=== PATIENT | female | born 1945 | race Caucasian/White ===

== ENCOUNTER 2018-09-03 09:32 | Emergency (ER) | payer MEDICARE ==
[~2018-09-03] VITALS: Ht 162.6 cm; Wt 79.4 kg
--- OUTSIDE RECORDS SUMMARY | 2018-09-03 09:35 | XMS REPORT | Clinical Summary ---
Author Author DOMINIC [facility] Address Unknown Phone Unavailable Care Team Providers Care Carton Maker Name Role Phone Artemio Mcclure MD PCP Allergies Comments Active Allergy Reactions Severity Noted Date Amoxicillin-Pot Hives, 02/05/2018 Clavulanate Itching Clindamycin Nausea Only 02/05/2018 Erythromycin Nausea Only 02/05/2018 insomnia Levofloxacin 02/05/2018 Medications End Date Status Medication Sig Dispensed Refills Start Date Active DULoxetine (CYMBALTA) 30 Take 30 mg by 0 MG capsule mouth 2 (two) times daily. Active atorvastatin (LIPITOR) 20 Take 20 mg by 0 MG tablet mouth daily. Active gabapentin (NEURONTIN) Take 100 mg 0 100 MG capsule by mouth 2 (two) times daily. Active ranitidine (ZANTAC) 300 Take 300 mg 0 MG capsule by mouth every evening. Active alendronate (FOSAMAX) 70 Take 70 mg by 0 MG tablet mouth every 7 days Take in the morning with a full glass of water, on an empty stomach, and do not take anything else by mouth or lie down for the next 30 min. . Active pantoprazole (PROTONIX) Take 40 mg by 0 40 MG tablet mouth daily. Active cholecalciferol, vitamin Take 1 tablet 0 D3, (VITAMIN D3 ORAL) by mouth daily. Active Missing or Non-Formulary Inject 1 Dose 0 Medication intravenously every 3 (three) months Retimax? (For Non-Hodgkins Lymphoma) . 02/20/2019 Active amiodarone (PACERONE) 200 Take 1 tablet 60 tablet 0 02/20/201 MG tablet (200 mg 8 total) by mouth 2 (two) times daily. 02/20/2019 Active metoprolol (LOPRESSOR) 25 Take 0.5 30 tablet 0 09/10/201 MG tablet tablets (12.5 8 mg total) by mouth 2 (two) times daily. 02/20/2018 Discontinued amLODIPine (NORVASC) 5 MG Take 5 mg by 0 tablet mouth daily. 02/20/2018 Discontinued amiodarone (PACERONE) 200 Take 1 tablet 60 tablet 0 MG tablet (200 mg 8 total) by mouth 2 (two) times daily. 02/20/2018 Discontinued apixaban (ELIQUIS) 5 mg Take 1 tablet 60 tablet 0 Tab tablet (5 mg total) 8 by mouth 2 (two) times daily for 30 days. 02/20/2018 Discontinued metoprolol (LOPRESSOR) 25 Take 0.5 30 tablet 0 201 MG tablet tablets (12.5 8 mg total) by mouth 2 (two) times daily. 03/22/2018 apixaban (ELIQUIS) 5 mg Take 1 tablet 60 tablet 0 Tab tablet (5 mg total) 8 by mouth 2 (two) times daily for 30 days. Active Problems Problem Noted Date New onset a-fib 02/17/2018 Primary osteoarthritis of left knee 02/16/2018 Status post left knee replacement 02/16/2018 Encounters Care Team Description Date Type Specialty 02/17/2018 Orders Only General Internal Medicine Komal Ybarra MD ARTHROPLASTY,KNEE UNILATERAL 02/16/2018 Surgery Andrea Duque MD 02/16/2018 Anesthesia Event Komal Ybarra MD New onset a-fib (HCC) 02/16/2018 Hospital Cardiology - Encounter 02/20/2018 Resource, [place] Preadmit Phone 02/15/2018 Hospital Pre-Admission Testing Encounter after 09/02/2017 Social History Date Tobacco Use Types Packs/Day Years Used Never Smoker Smokeless Tobacco: Never Used Alcohol Use Drinks/Week oz/Week Comments No Sex Assigned at Date Recorded Not on file Industry Job Start Date Occupation Not on file Not on file Not on file Travel End Travel History Travel Start No recent travel history available. Last Filed Vital Signs Time Taken Vital Sign Reading 02/20/2018 12:53 PM CDT Blood Pressure 123/69 02/20/2018 12:53 PM CDT Pulse 72 02/20/2018 12:53 PM CDT Temperature 36.9 C (98.5 F) 02/20/2018 12:53 PM CDT Respiratory Rate 18 02/20/2018 12:53 PM CDT Oxygen Saturation 95% - Inhaled Oxygen - Concentration 02/19/2018 7:35 AM CDT Weight 84 kg (185 lb 3.2 oz) 02/16/2018 5:49 AM CDT Height 162.6 cm (5' 4.02") 02/19/2018 7:35 AM CDT Body Mass Index 31.77 Plan of Treatment Not on file Implants Device Identifier Shelf Expiration Date Model / Serial / Lot Implanted Type Area Manufactur er 07/13/2020 6191-1-001 / / [id number] Cement Bone Surg Smplx P Full Cement/Mark Left: Knee MARIXA:ST 6191-1-001 - [id number] ler/Adhesi ELAINA Implanted: Qty: 2 on 02/16/2018 by Komal Knott MD 08/19/2022 5551-G-320 / / [id number] Patella Tri Asymmetric [id number] Joints Left: Knee MARIXA:ST 5551-G-320 - [id number] ELAINA Implanted: Qty: 1 on 02/16/2018 by Komal Diggs MD 05/16/2022 5530-G-309 / / [id number] Insrt Tib Tri Crx 9mm 5530-G-309 - Joints Left: Knee MARIXA:ST [id number] ELAINA Implanted: Qty: 1 on 02/16/2018 by Komal Diggs MD 02/24/2022 5510-F-201 / / [id number] Comp Fem Cr Lemuel No.2 L 5510-F-201 - Joints Left: Knee MARIXA:ST [id number] ELAINA Implanted: Qty: 1 on 02/16/2018 by Komal Diggs MD 08/23/2022 5520-B-300 / / [id number] Baseplt Luanne Tib Lemuel No.3 5520-B-300 Joints Left: Knee MARIXA:ST - [id number] ELAINA Implanted: Qty: 1 on 02/16/2018 by Komal Diggs MD CS Procedures Comments Procedure Name Priority Date/Time Associated Diagnosis RHYTHM STRIP - SCAN 02/21/2018 12:[address] CHEST PE TEST DESIGN Routine 02/19/2018 5:45 PM CDT HEMOGLOBIN AND HEMATOCRIT Routine 02/19/2018 3:08 AM CDT BASIC METABOLIC PANEL (7) Routine 02/19/2018 3:08 AM CDT B-TYPE NATRIURETIC FACTOR Routine 02/18/2018 (BNP) 12:59 PM CDT XR CHEST 1 VIEW DOMINGO 02/18/2018 PORTABLE/BEDSIDE 12:05 PM CDT MAGNESIUM Routine 02/18/2018 3:19 AM CDT HEMOGLOBIN AND HEMATOCRIT Routine 02/18/2018 3:19 AM CDT BASIC METABOLIC PANEL (7) Routine 02/18/2018 3:19 AM CDT ECHOCARDIOGRAM REPORT - 02/17/2018 SCAN 6:50 PM CDT TRANSFUSION SERVICE 02/17/2018 REPORT - SCAN 5:51 PM CDT 2D ECHO W/ DOPPLER DOMINGO 02/17/2018 (CW/PW/COLOR) 2:24 PM CDT MAGNESIUM DOMINGO 02/17/2018 8:46 AM CDT TROPONIN I DOMINGO 02/17/2018 8:46 AM CDT CREATINE KINASE (CK), DOMINGO 02/17/2018 TOTAL AND MB 8:46 AM CDT TSH/FREE T4 IF INDICATED Routine 02/17/2018 8:46 AM CDT ECG 12-LEAD Routine 02/17/2018 6:53 AM CDT ECG 12-LEAD Routine 02/17/2018 6:53 AM CDT Procedure Note - Interface, External Ris In - 02/17/2018 7:12 AM CDT Ventricula r Rate 109 BPM Atrial Rate 357 BPM QRS Duration 68 ms Q-T Interval 274 ms QTC Calculatio n(Bazett) 368 ms R [place] 47 degrees T [place] 17 degrees Atrial fibrillati on with rapid ventricula r response Abnormal ECG When compared with ECG of 8 06:44, No significan t change was found ECG 12-LEAD Routine 02/17/2018 6:44 AM CDT Procedure Note - Interface, External Ris In - 02/17/2018 7:12 AM CDT Ventricula r Rate 119 BPM Atrial Rate 258 BPM QRS Duration 76 ms Q-T Interval 338 ms QTC Calculatio n(Bazett) 475 ms R [place] 48 degrees T [place] 225 degrees Atrial fibrillati on with rapid ventricula r response Nonspecifi c T wave abnormalit y , probably digitalis effect Abnormal ECG No previous ECGs available ECG 12-LEAD STAT(After 02/17/2018 Hours 6:44 AM CDT Page Staff) HEMOGLOBIN AND HEMATOCRIT Routine 02/17/2018 5:06 AM CDT BASIC METABOLIC PANEL (7) Routine 02/17/2018 5:06 AM CDT ARTHROPLASTY,KNEE 02/16/2018 Osteoarthritis of left UNILATERAL 6:45 AM CDT knee, unspecified osteoarthritis type Special Needs (SPINAL/EP IDURAL WITH ADDUCTOR CANAL BLOCK, MARIXA TRIATHLON) ANESTHESIA PERIPHERAL Routine 02/16/2018 BLOCK 6:41 AM CDT ANESTHESIA SPINAL BLOCK Routine 02/16/2018 6:40 AM CDT TISSUE EXAM AP Routine 02/16/2018 6:13 AM CDT TYPE AND SCREEN, Routine 02/16/2018 AUTOMATED 5:50 AM CDT after 09/02/2017 Results * RHYTHM STRIP - SCAN (02/21/2018 12:42 PM CDT) Narrative Performed At * CT chest for pulmonary embolus (02/19/2018 5:45 PM CDT) Narrative Performed At FINAL REPORT [facility] CLINICAL HISTORY: Chest pain, hypoxia FINDINGS: Multiple axial images of the chest were performed after the uncomplicated administration of IV contrast, utilizing a pulmonary embolism protocol. Post-processing coronal reformats were created and interpreted. This exam was performed according to our departmental dose-optimization program, which includes automated exposure control, adjustment of the mA and/or kV according to patient size and/or use of the iterative reconstruction technique. Study quality:Adequate. Comparison:None. Pulmonary arteries: No pulmonary embolism. Lung parenchyma: Bilateral dependent atelectasis Pleural effusion: None. Pneumothorax: None. Tracheobronchial tree: No significant findings. Pulmonary vasculature: No significant findings. Cardiac contours and great vessels: Atherosclerotic calcification of the coronary arteries and aorta Mediastinum: Moderate to large hiatal hernia Lymph Nodes: No adenopathy in the mediastinum or lisa. Skeleton: No acute abnormality. Limited images of upper abdomen: No significant findings. IMPRESSION: No pulmonary embolism. Bilateral dependent atelectasis versus pneumonitis. Moderate to large hiatal hernia. Signed: Osiel Odell MD Report Verified Date/Time:02/19/2018 18:37:39 Reading Location: [address] Reading Room Procedure Note Interface, External Ris In - 02/19/2018 6:39 PM CDT FINAL REPORT CLINICAL HISTORY: Chest pain, hypoxia FINDINGS: Multiple axial images of the chest were performed after the uncomplicated administration of IV contrast, utilizing a pulmonary embolism protocol. Post-processing coronal reformats were created and interpreted. This exam was performed according to our departmental dose-optimization program, which includes automated exposure control, adjustment of the mA and/or kV according to patient size and/or use of the iterative reconstruction technique. Study quality:Adequate. Comparison:None. Pulmonary arteries: No pulmonary embolism. Lung parenchyma: Bilateral dependent atelectasis Pleural effusion: None. Pneumothorax: None. Tracheobronchial tree: No significant findings. Pulmonary vasculature: No significant findings. Cardiac contours and great vessels: Atherosclerotic calcification of the coronary arteries and aorta Mediastinum: Moderate to large hiatal hernia Lymph Nodes: No adenopathy in the mediastinum or lisa. Skeleton: No acute abnormality. Limited images of upper abdomen: No significant findings. IMPRESSION: No pulmonary embolism. Bilateral dependent atelectasis versus pneumonitis. Moderate to large hiatal hernia. Signed: Osiel Odell MD Report Verified Date/Time: 02/19/2018 18:37:39 Reading Location: [address] Reading Room Performing Organization Address City/State/[facility] Phone Number GE RIS * Hemoglobin and hematocrit (02/19/2018 3:08 AM CDT) Only the most recent of 3 results within the time period is included. Hemoglobin 9.4 (L) 11.2 - 15.7 GM/DL [facility] Hematocrit 29.8 (L) 34.1 - 44.9 % [facility] Specimen Blood Performing Organization Address [facility] Hospital[facility] Phone Number [facility] [address] [place] [address] [facility] * Basic metabolic panel (02/19/2018 3:08 AM CDT) Only the most recent of 3 results within the time period is included. Sodium 135 (L) 136 - 145 meq/L [facility] Potassium 3.6 3.5 - 5.1 meq/L [facility] Chloride 101 98 - 107 meq/L [facility] CO2 25 22 - 29 meq/L [facility] BUN 6 (L) 7 - 21 mg/dL [facility] Creatinine 0.66 0.57 - 1.25 mg/dL [facility] Glucose 108 (H) 70 - 105 mg/dL [facility] Calcium 9.2 8.4 - 10.2 mg/dL [facility] EGFR 88Comment: ESTIMATED GFR IS mL/min/1.73 sq m [facility] NOT ACCURATE CREATININE [facility] CLEARANCE IN PREDICTING GLOMERULAR FILTRATION RATE. ESTIMATED GFR IS NOT APPLICABLE FOR DIALYSIS PATIENTS. Specimen Blood Performing Organization Address City/[facility]code Phone Number [facility] [address] [place] [address] [facility] * B-type Natriuretic Factor (BNP) (02/18/2018 12:59 PM CDT) BNP 253 (H) 0 - 100 pg/mL [facility] Specimen Blood - Arm, Right Performing Organization Address City/State/Zipcode Phone Number [facility] [address] [place] [address] [facility] * XR chest 1 view portable / bedside (02/18/2018 12:05 PM CDT) Narrative Performed At FINAL REPORT GE [employer] INDICATION: SOB TECHNIQUE: Chest radiograph, single view, portable technique. FINDINGS / IMPRESSION: There is a left retrocardiac opacity which may represent pneumonia, aspiration, atelectasis, or possibly a lung mass. Right lung is clear. No pneumothorax or definite pleural effusion demonstrated. Heart shadow is prominent. Osseous structures unremarkable. Signed: Cedric Daniel MD Report Verified Date/Time:02/18/2018 12:51:04 Reading Location: [address] Ortho Consult Reading Room Procedure Note Interface, External Ris In - 02/18/2018 1:35 PM CDT FINAL REPORT INDICATION: SOB TECHNIQUE: Chest radiograph, single view, portable technique. FINDINGS / IMPRESSION: There is a left retrocardiac opacity which may represent pneumonia, aspiration, atelectasis, or possibly a lung mass. Right lung is clear. No pneumothorax or definite pleural effusion demonstrated. Heart shadow is prominent. Osseous structures unremarkable. Signed: Cedric Daniel MD Report Verified Date/Time: 02/18/2018 12:51:04 Reading Location: [facility] B1 [id number] Ortho Consult Reading Room Performing Organization Address City/State/Zipcode Phone Number [employer] * Magnesium (02/18/2018 3:19 AM CDT) Only the most recent of 2 results within the time period is included. Magnesium 1.8 1.6 - 2.6 mg/dL [facility] Specimen Blood - Arm, Right Performing Organization Address City/State/Zipcode Phone Number DOMINIC [facility] [address] [place] [address] [facility] * ECHOCARDIOGRAM REPORT - SCAN (02/17/2018 6:50 PM CDT) Narrative Performed At * TRANSFUSION SERVICE REPORT - SCAN (02/17/2018 5:51 PM CDT) Narrative Performed At * 2D Echo W/Doppler(CW/PW/Color) (02/17/2018 2:24 PM CDT) Ejection Fraction [facility] ECHO [facility]ART[facility] [employer] [facility] Narrative Performed At Transthoracic Echocardiography Report (TTE) [facility] ECHO [facility]ART[facility] Demographics [place] [facility] Patient NameJIMMY ROWLEY Date of Study02/17/2018 MARI Gender Female Visit [id number] Race [id number] Number Date of 1945 ReferringCatmonroe Ybarra Physicia n Age 72 year(s) SonographMirtha Leon CS Extraction Supervisor Fletcher Askewting Ruy Renteria Physicia nMD Procedure Type of Study TTE procedure:2DECHO W DOPPLER(CW/PW/COLOR) (DOMINGO) Indications:Sustained or non sustained Afib, SVT or VT. Clinical History NO LABS AVAILABLE NON HODGKINS LYMPHOMA, HLD, HTN, MATEO, PONV Height: 64 inches Weight: 83.01 kg (183 lbs) BSA: 1.88 m^2 BMI: 31.41 kg/m^2 HR: 109 bpm BP: 167/59 mmHg Signature Findings Left Ventricle The left ventricle is chamber size (by PSLAX dimension) is normal (female - LVIDd 3.8-5.2cm) . Normal LV wall thickness. All of the LV segments contract normally . Estimated LVEF by qualitative assessment is normal (>60%) . Left AtriumLA size is normal . Right VentricleNormal right ventricle structure and function. Right Atrium Normal right atrium. Aortic Valve Mild AoV cusp thickening. Mitral Valve Mild MV leaflet thickening. Tricuspid ValveEstimated peak systolic PA pressure is 25-30 mmHg . A trace of tricuspid regurgitation. Pulmonic Valve Normal PV structure and function by limited views and Doppler. AortaAortic root size (SInus of Valsalva diameter) is normal . PericardiumNo evidence of pericardial effusion. IVC/SVC/PA/PV/PleuralThe estimated RA pressure by IVC dynamics 5-10mmHg . Chambers/Structures Left Atrium LA Dimension: 3.7 cm LA Area: 20.36 cm^2 LA Volume: 62.82 ml LA Vol. Index: 33 ml/m^2 Left Ventricle LVIDd: 4.02 cmLVEDV:70.95 ml LV Septum Diastolic: 1.13 cm LV PW Diastolic: 0.8 cm LVEDV Morel's:50.55 mlLV Length: 7.76 cm LVESV Morel's:20.23 ml LVEF Morel's: 60 %LVEDVI: 27 ml/m^2 LVESVI: 11 ml/m^2 LVOT Diameter: 2.32 cm Aorta Ao Root S of Elsa.: 3.28 cm Doppler/Quantitative Measurements Mitral Valve MV Peak E-Wave: 1.2 m/s MV Peak A-Wave: 0.35 m/s P1/2t: 56.4 msecE/A Ratio: 3.39 Peak Gradient: 5.76 mmHg Deceleration Time: 194.6 msec MV Area (PHT): 3.9 cm^2 MV Jay. Peak: Aortic Valve Peak Velocity: 1.32 m/sMean Velocity: 0.92 m/s Peak Gradient: 7 mmHgMean Gradient: 4.96 mmHg AV Area (continuity): 2.75 cm^2 AV VTI: 23.49 cm AV DVI: 0.65 LVOT Peak Velocity: 1.07 m/s Peak Gradient: 4.55 mmHg Mean Velocity: 0.59 m/s Mean Gradient: 1.76 mmHg LVOT Diameter: 2.32 cmLVOT VTI: 15.31 cm LVOT Area: 4.23 cm^2LVOT SV:64.69 ml LVOT CO: 7.05 l/min LVOT CI: 3.75 l/min/m^2 Tricuspid Valve TR Velocity: 2.25 m/s TR Gradient: 20.17 mmHg Procedure Note Interface, External Ris In - 02/17/2018 6:25 PM CDT Transthoracic Echocardiography Report (TTE) Demographics Patient Name JIMMY ROWLEY Date of Study 02/17/2018 MARI Gender Female Visit Number [id number] Race Room Number C634-2 Number Date of 1945 Referring Komal Ybarra Physician Age 72 year(s) Mold Construction Supervisor Erin Leon [facility] Extraction Supervisor Fletcher Jensen Interpreting Ruy Renteria Physician Procedure Type of Study TTE procedure:2DECHO W DOPPLER(CW/PW/COLOR) (DOMINGO) Indications:Sustained or non sustained Afib, SVT or VT. Clinical History NO LABS AVAILABLE NON HODGKINS LYMPHOMA, HLD, HTN, MATEO, PONV Height: 64 inches Weight: 83.01 kg (183 lbs) BSA: 1.88 m^2 BMI: 31.41 kg/m^2 HR: 109 bpm BP: 167/59 mmHg Signature Findings Left Ventricle The left ventricle is chamber size (by PSLAX dimension) is normal (female - LVIDd 3.8-5.2cm) . Normal LV wall thickness. All of the LV segments contract normally . Estimated LVEF by qualitative assessment is normal (>60%) . Left Atrium LA size is normal . Right Ventricle Normal right ventricle structure and function. Right Atrium Normal right atrium. Aortic Valve Mild AoV cusp thickening. Mitral Valve Mild MV leaflet thickening. Tricuspid Valve Estimated peak systolic PA pressure is 25-30 mmHg . A trace of tricuspid regurgitation. Pulmonic Valve Normal PV structure and function by limited views and Doppler. Aorta Aortic root size (SInus of Valsalva diameter) is normal . Pericardium No evidence of pericardial effusion. IVC/SVC/PA/PV/Pleural The estimated RA pressure by IVC dynamics 5-10mmHg . Chambers/Structures Left Atrium LA Dimension: 3.7 cm LA Area: 20.36 cm^2 LA Volume: 62.82 ml LA Vol. Index: 33 ml/m^2 Left Ventricle LVIDd: 4.02 cm LVEDV:70.95 ml LV Septum Diastolic: 1.13 cm LV PW Diastolic: 0.8 cm LVEDV Morel's:50.55 ml LV Length: 7.76 cm LVESV Morel's:20.23 ml LVEF Morel's: 60 % LVEDVI: 27 ml/m^2 LVESVI: 11 ml/m^2 LVOT Diameter: 2.32 cm Aorta Ao Root S of Elsa.: 3.28 cm Doppler/Quantitative Measurements Mitral Valve MV Peak E-Wave: 1.2 m/s MV Peak A-Wave: 0.35 m/s P1/2t: 56.4 msec E/A Ratio: 3.39 Peak Gradient: 5.76 mmHg Deceleration Time: 194.6 msec MV Area (PHT): 3.9 cm^2 MV Jay. Peak: Aortic Valve Peak Velocity: 1.32 m/s Mean Velocity: 0.92 m/s Peak Gradient: 7 mmHg Mean Gradient: 4.96 mmHg AV Area (continuity): 2.75 cm^2 AV VTI: 23.49 cm AV DVI: 0.65 LVOT Peak Velocity: 1.07 m/s Peak Gradient: 4.55 mmHg Mean Velocity: 0.59 m/s Mean Gradient: 1.76 mmHg LVOT Diameter: 2.32 cm LVOT VTI: 15.31 cm LVOT Area: 4.23 cm^2 LVOT SV:64.69 ml LVOT CO: 7.05 l/min LVOT CI: 3.75 l/min/m^2 Tricuspid Valve TR Velocity: 2.25 m/s TR Gradient: 20.17 mmHg Performing Organization Address [facility] Phone Number [facility]ART[facility] MKCKESSON CPACS * TSH/Free T4 If Indicated (02/17/2018 8:46 AM CDT) TSH 1.00 0.35 - 4.94 uIU/mL [facility] Specimen Blood Performing Organization Address [facility] [place] [address] [phone] * Troponin I (02/17/2018 8:46 AM CDT) Troponin I <0.01 0.00 - 0.03 ng/mL [facility] Specimen Blood Narrative Performed At Troponin I (TnI) levels must be interpreted in the context of the presenting [facility] symptoms and the clinical findings. Elevated TnI levels indicate myocardial [facility] damage, but are not specific for ischemic heart disease. Elevated TnI levels are seen in patients with other cardiac conditions (including myocarditis and congestive heart failure), and slight TnI elevations occur in patients with other conditions, including sepsis, renal failure, acidosis, acute neurological disease, and persistent tachyarrhythmia. Performing Organization Address [facility] [place] [address] [phone] [place] [address] * Creatine Kinase (CK), Total and MB (02/17/2018 8:46 AM CDT) Total CK 205 (H) 29 - 200 U/L [facility] CK-MB 3.2 0.0 - 6.6 ng/mL [facility] MB Relative Index 1.6 % [facility] Specimen Blood Narrative Performed At CK-MB Reference Range: [facility] <6.7Normal [facility] 6.7-10.0Borderline >10.0 Abnormal Performing Organization Address City/State/Zipcode Phone Number [facility] [address] [place] [address] [facility] * ECG 12 lead (02/17/2018 6:53 AM CDT) Only the most recent of 2 results within the time period is included. Narrative Performed At Ventricular Rate 109 BPM GE MUSE Atrial Rate 357 BPM QRS Duration 68 ms Q-T Interval 274 ms QTC Calculation(Bazett) 368 ms R [place] 47 degrees T [place] 17 degrees Atrial fibrillation with rapid ventricular response Abnormal ECG When compared with ECG of 17-FEB-2018 06:44, No significant change was found Confirmed by MD QURESHI JOSEPH P ([id number]) on 02/18/2018 7:07:31 AM Procedure Note Interface, External Ris In - 02/18/2018 7:07 AM CDT Ventricular Rate 109 BPM Atrial Rate 357 BPM QRS Duration 68 ms Q-T Interval 274 ms QTC Calculation(Bazett) 368 ms R [place] 47 degrees T [place] 17 degrees Atrial fibrillation with rapid ventricular response Abnormal ECG When compared with ECG of 17-FEB-2018 06:44, No significant change was found Confirmed by MD QURESHI JOSEPH P ([id number]) on 02/18/2018 7:07:31 AM Performing Organization Address City/State[facility] Phone Number GE MUSE * ANESTHESIA PERIPHERAL BLOCK (02/16/2018 6:41 AM CDT) Narrative Performed At Vitor Goldberg MD 02/16/20186:41 AM Peripheral Block Patient location during procedure: pre-op Start time: 02/16/2018 6:33 AM End time: 02/16/2018 6:36 AM Reason for block: procedure for pain, at surgeon's request and post-op pain management Staffing Anesthesiologist: VITOR GOLDBERG Resident/ONCOLOGY REGISTRAR: AJ LAI Performed by: resident/ONCOLOGY REGISTRAR Preanesthetic Checklist Completed: patient identified, site marked, surgical consent, pre-op evaluation, timeout performed, IV checked, risks and benefits discussed and monitors and equipment checked Peripheral Block Patient position: supine Prep: ChloraPrep Patient monitoring: vehicle monitor technician, heart rate and continuous pulse ox Block type: Adductor canal Laterality: left Injection technique: catheter Procedures: ultrasound guided Local infiltration: ropivicaine Infiltration strength: 0.5 % Dose: 30 mL Needle Needle type: Tuohy Needle gauge: 17 G Needle length: 100 mm Catheter type: open end Catheter size: 19 G Assessment Injection assessment: negative aspiration for heme, no paresthesia on injection, incremental injection and local visualized surrounding nerve on ultrasound Paresthesia pain: none Heart rate change: no Slow fractionated injection: yes Procedure Note Vitor Goldberg MD - 02/16/2018 6:40 AM CDT Peripheral Block Patient location during procedure: pre-op Start time: 02/16/2018 6:33 AM End time: 02/16/2018 6:36 AM Reason for block: procedure for pain, at surgeon's request and post-op pain management Staffing Anesthesiologist: VITOR GOLDBERG Resident/ONCOLOGY REGISTRAR: AJ LAI Performed by: resident/ONCOLOGY REGISTRAR Preanesthetic Checklist Completed: patient identified, site marked, surgical consent, pre-op evaluation, timeout performed, IV checked, risks and benefits discussed and monitors and equipment checked Peripheral Block Patient position: supine Prep: ChloraPrep Patient monitoring: vehicle monitor technician, heart rate and continuous pulse ox Block type: Adductor canal Laterality: left Injection technique: catheter Procedures: ultrasound guided Local infiltration: ropivicaine Infiltration strength: 0.5 % Dose: 30 mL Needle Needle type: Tuohy Needle gauge: 17 G Needle length: 100 mm Catheter type: open end Catheter size: 19 G Assessment Injection assessment: negative aspiration for heme, no paresthesia on injection, incremental injection and local visualized surrounding nerve on ultrasound Paresthesia pain: none Heart rate change: no Slow fractionated injection: yes * ANESTHESIA SPINAL BLOCK (02/16/2018 6:40 AM CDT) Narrative Performed At Vitor Goldberg MD 02/16/20186:40 AM Spinal Block Patient location during procedure: Block Room Start time: 02/16/2018 6:28 AM End time: 02/16/2018 6:30 AM Reason for block: procedure for pain, at surgeon's request and post-op pain management Staffing Anesthesiologist: VITOR GOLDBERG Resident/ONCOLOGY REGISTRAR: AJ LAI Performed by: resident/ONCOLOGY REGISTRAR Preanesthetic Checklist Completed: patient identified, site marked, surgical consent, pre-op evaluation, timeout performed, IV checked, risks and benefits discussed and monitors and equipment checked Spinal Block Patient position: sitting Prep: Betadine Patient monitoring: heart rate, vehicle monitor technician and continuous pulse ox Approach: midline Location: L2-3 Injection technique: single-shot Needle Needle type: Pencan Needle gauge: 25 G Needle length: 10 cm Assessment Sensory level: T10 Procedure Note Vitor Godlberg MD - 02/16/2018 6:39 AM CDT Spinal Block Patient location during procedure: Block Room Start time: 02/16/2018 6:28 AM End time: 02/16/2018 6:30 AM Reason for block: procedure for pain, at surgeon's request and post-op pain management Staffing Anesthesiologist: VITOR GOLDBERG Resident/ONCOLOGY REGISTRAR: AJ LAI Performed by: resident/ONCOLOGY REGISTRAR Preanesthetic Checklist Completed: patient identified, site marked, surgical consent, pre-op evaluation, timeout performed, IV checked, risks and benefits discussed and monitors and equipment checked Spinal Block Patient position: sitting Prep: Betadine Patient monitoring: heart rate, vehicle monitor technician and continuous pulse ox Approach: midline Location: L2-3 Injection technique: single-shot Needle Needle type: Pencan Needle gauge: 25 G Needle length: 10 cm Assessment Sensory level: T10 * Tissue Exam (02/16/2018 6:13 AM CDT) Case Report Surgical Pathology [facility] Report [facility] Case: [id number] Authorizing Provider:Komal Ybarra, Collected: 02/16/201813 Ordering Location: [facility] PERIOPER[facility] Received: 02/16/2018 0845 SERVICES Pathologist: Aracelis Miner MD Specimen:Condyle,Left Knee DIAGNOSIS CONDYLES, LEFT KNEE, [facility] ARTHROPLASTY: [facility] - DEGENERATIVE CHANGES CONSISTENT WITH OSTEOARTHRITIS Signing Pathologist Direct Phone Line: [phone] CPT Code(s) 02902, 84491 [facility] CLINICAL HISTORY Osteoarthritis of left knee [facility] SPECIMEN SOURCE Left knee condyle [facility] GROSS DESCRIPTION The specimen is received in a [facility] fluidless container labeled [facility] with patient information and labeled "left knee condyle" and consists of multiple fragments of nguyen knee bone and soft tissue measuring 8 x 6 x 2.5 cm in aggregate. Bone fragments have distinct osteophyte formation with focal areas of eburnation. Section code: A1 and A2, bone submitted for decalcification; A3, soft tissue and bone submitted for decalcification. CG/pl MICROSCOPIC DESCRIPTION Performed. [facility] Specimen Tissue - Condyle,Left Knee Performing Organization Address City/[facility] Phone Number [facility] [address] [place] [address] [facility] * Type and screen, automated (02/16/2018 5:50 AM CDT) ABO/RH AUTOMATED (BEAKER) O POSITIVE [facility] Ab Scrn NEGATIVE [facility] Specimen Blood Performing Organization Address City/[facility]/Zipcode Phone Number [facility] [address] [place] [address] [facility] after 09/02/2017 Insurance Payer Benefit Subscriber ID Type Phone Address Plan / Group [facility] xxxxxxxxxxx MEDICARE ADV Advance Directives Patient has advance care planning documents, and code status on file. For more i nformation, please contact: [address] [phone] Date Inactivated Comments Code Status Date Activated 02/20/2018 6:20 PM Full Code 02/16/2018 5:41 AM This code status was determined by: Patient
--- OUTSIDE RECORDS SUMMARY | 2018-09-03 09:35 | XMS REPORT ---
Author Author [facility] Address Unknown Phone Unavailable Care Team Providers Care Pipe Fitter Supervisor Maintenance Name Role Phone NADEEM ESPINOZA Unavailable Unavailable Problems This patient has no known problems. Allergies, Adverse Reactions, Alerts This patient has no known allergies or adverse reactions. Medications This patient has no known medications. Results Test Description Test Time Test Comments Text Results Atomic Results Result Comments TISSUE EXAM 2018-02-21 10:40:00 Surgical Pathology Report Case: [id number] Authorizing Provider: Komal Espinoza, Collected: 02/16/2018 0613 Ordering Location: [facility] PERIOPERATIVE Received: 02/16/2018 0845 SERVICES Pathologist: Aracelis Miner MD Specimen: Condy le,Left Knee CONDYLES, LEFT KNEE, ARTHROPLASTY: - DEGENERATIVE CHANGES CONSISTENT WITH OSTEOARTHRITIS Signing Pathologist Direct Phone Line: [phone] signed by Aracelis Miner MD on 02/21/2018 at 10:40 [id number], [id number] of left kneeLeft knee condyleThe specimen is received in a fluidless container labeled with patient information and labeled "left knee condyle" and consists of multiple fragments of nguyen knee bone and soft tissue measuring 8 x 6 x 2.5 cm in aggregate. Bone fragments have distinct osteo phyte formation with focal areas of eburnation. Section code: A1 and A2, bone submitted for decalcification; A3, soft tissue and bone submitted for decalcification. CG/pl Performed. CT, CHEST WITH IV CONTRAST- PE TEST DESIGN 2018-02-19 18:37:00 Reason for exam:- >hypoxia, post-opWhat is the patient's sedation requirement?->No Sedation FINAL REPORT CLINICAL HISTORY: Chest pain, hypoxia FINDINGS: Multiple axial images of the chest were performed after the uncomplicated administration of IV contrast, utilizing a pulmonary embolism protocol. Post- processing coronal reformats were created and interpreted. This [...] pneumonitis. Moderate to large hiatal hernia. Signed: Isrrael Cruz MDReport Verified Date/Time: 02/19/2018 18:37:39 Reading Location: [address] Reading Room C METABOLIC PANEL 2018-02-19 05:01:00 SODIUM (BEAKER) (test nzjs=595) 135 meq/L 136-145 POTASSIUM (BEAKER) (test dmzy=492) 3.6 meq/L 3.5-5.1 CHLORIDE (BEAKER) (test vqsp=519) 101 meq/L 98-107 CO2 (BEAKER) (test xdwy=185) 25 meq/L 22-29 BLOOD UREA NITROGEN (BEAKER) (test iwrx=414) 6 mg/dL 7-21 CREATININE (BEAKER) (test voyz=738) 0.66 mg/dL 0.57-1.25 GLUCOSE RANDOM (BEAKER) (test hdrl=658) 108 mg/dL 70-105 CALCIUM (BEAKER) (test ynsa=321) 9.2 mg/dL 8.4-10.2 EGFR (BEAKER) (test zksj=4343) 88 mL/min/1.73 sq m ESTIMATED GFR IS NOT ACCURATE CREATININE CLEARANCE IN PREDICTING GLOMERULAR FILTRATION RATE. ESTIMATED GFR IS NOT APPLICABLE FOR DIALYSIS PATIENTS. HEMOGLOBIN AND [id number] 03:56:00* Test Item Value Reference Range Comments HEMOGLOBIN (BEAKER) (test dahz=265) 9.4 GM/DL 11.2-15.7 HEMATOCRIT (BEAKER) (test mflk=492) 29.8 % 34.1-44.9 B-TYPE NATRIURETIC FACTOR (BNP)2018-02-18 13:56:00* Test Item Value Reference Range Comments B-TYPE NATRIURETIC PEPTIDE (BEAKER) (test myqe=034) 253 pg/mL 0-100 RAD, CHEST, 1 VIEW, NON [id number] 12:51:00Reason for exam:->SOBShould this be performed at the bedside?->YesFINAL REPORT INDICATION: SOB TECHNIQUE: Chest radiograph, single view, portable technique. FINDINGS / IMPRESSION: There is a left retrocardiac opacity which may represent pneumonia, aspiration, atelectasis, or possibly a lung mass. Right lung is clear. No pneumothorax or definite pleural effusion demonstrated. Heart shadow is prominent. Osseous structures unremarkable. Signed: Cami Erwin MDReport Verified Date/Time: 02/18/2018 12:51:04 Reading Location: [address] Ortho Consult Reading Room [id number] 06:24:00* Test Item Value Reference Range Comments MAGNESIUM (BEAKER) (test mnzs=654) 1.8 mg/dL 1.6-2.6 BASIC METABOLIC [id number] 06:24:00* Test Item Value Reference Range Comments SODIUM (BEAKER) (test ioqk=689) 134 meq/L 136-145 POTASSIUM (BEAKER) (test xbqs=662) 3.9 meq/L 3.5-5.1 CHLORIDE (BEAKER) (test fqiy=085) 100 meq/L 98-107 CO2 (BEAKER) (test urde=240) 25 meq/L 22-29 BLOOD UREA NITROGEN (BEAKER) (test xhdz=511) 6 mg/dL 7-21 CREATININE (BEAKER) (test rmyv=544) 0.67 mg/dL 0.57-1.25 GLUCOSE RANDOM (BEAKER) (test qsjk=412) 107 mg/dL 70-105 CALCIUM (BEAKER) (test ppta=989) 9.2 mg/dL 8.4-10.2 EGFR (BEAKER) (test mxdp=8383) 86 mL/min/1.73 sq m ESTIMATED GFR IS NOT ACCURATE CREATININE CLEARANCE IN PREDICTING GLOMERULAR FILTRATION RATE. ESTIMATED GFR IS NOT APPLICABLE FOR DIALYSIS PATIENTS. HEMOGLOBIN AND [id number] 04:58:00* Test Item Value Reference Range Comments HEMOGLOBIN (BEAKER) (test drwx=469) 9.7 GM/DL 11.2-15.7 HEMATOCRIT (BEAKER) (test hoiu=182) 30.9 % 34.1-44.9 TSH/FREE T4 IF [id number] 09:47:00* Test Item Value Reference Range Comments THYROID STIMULATING HORMONE (BEAKER) (test daes=923) 1.00 uIU/mL 0.35-4.94 CREATINE KINASE (CK), TOTAL AND [id number] 09:29:00* Test Item Value Reference Range Comments CREATINE KINASE TOTAL (BEAKER) (test gsbf=097) 205 U/L 29-200 CREATINE KINASE-MB (BEAKER) (test rruo=812) 3.2 ng/mL 0.0-6.6 CREATINE KINASE-MB INDEX (BEAKER) (test ylgm=428) 1.6 % CK-MB Reference Range:<6.7 Normal6.7-10.0 Borderline>10.0 Abnormal TROPONIN [id number] 09:29:00* Test Item Value Reference Range Comments TROPONIN I (BEAKER) (test aghp=964) < ng/mL 0.00-0.03 Troponin I (TnI) levels must be interpreted in the context of the presenting sym ptoms and the clinical findings. Elevated TnI levels indicate myocardial damage, but are not specific for ischemic heart disease. Elevated TnI levels are seen in patients with other cardiac conditions (including myocarditis and congestive h eart failure), and slight TnI elevations occur in patients with other conditions , including sepsis, renal failure, acidosis, acute neurological disease, and per sistent tachyarrhythmia.[id number] 09:23:00* Test Item Value Reference Range Comments MAGNESIUM (BEAKER) (test dtms=535) 1.8 mg/dL 1.6-2.6 BASIC METABOLIC [id number] 06:15:00* Test Item Value Reference Range Comments SODIUM (BEAKER) (test zztg=637) 139 meq/L 136-145 POTASSIUM (BEAKER) (test xilo=633) 3.5 meq/L 3.5-5.1 CHLORIDE (BEAKER) (test cbuj=109) 106 meq/L 98-107 CO2 (BEAKER) (test jlcq=868) 26 meq/L 22-29 BLOOD UREA NITROGEN (BEAKER) (test rixw=890) 6 mg/dL 7-21 CREATININE (BEAKER) (test bwbp=727) 0.72 mg/dL 0.57-1.25 GLUCOSE RANDOM (BEAKER) (test jidj=081) 133 mg/dL 70-105 CALCIUM (BEAKER) (test gsew=223) 8.9 mg/dL 8.4-10.2 EGFR (BEAKER) (test hesy=8711) 79 mL/min/1.73 sq m ESTIMATED GFR IS NOT ACCURATE CREATININE CLEARANCE IN PREDICTING GLOMERULAR FILTRATION RATE. ESTIMATED GFR IS NOT APPLICABLE FOR DIALYSIS PATIENTS. HEMOGLOBIN AND [id number] 05:21:00* Test Item Value Reference Range Comments HEMOGLOBIN (BEAKER) (test leti=498) 10.3 GM/DL 11.2-15.7 HEMATOCRIT (BEAKER) (test nzjx=591) 32.9 % 34.1-44.9
== END 2018-09-03 10:18 | disposition home or self-care (01) ==
LOC: FSED 09:32
DX: R10.30 Lower abdominal pain, unspecified (principal); N30.90 Cystitis, unspecified without hematuria; I10 Essential (primary) hypertension; I48.91 Unspecified atrial fibrillation; Z85.72 Personal history of non-Hodgkin lymphomas
CPT/HCPCS: 81003; 99283